=== PATIENT | male | born 1995 | race Caucasian/White ===

== ENCOUNTER 2018-01-11 07:41 | Emergency (ER) | payer OTHER ==
[~2018-01-11] VITALS: Ht 172.7 cm; Wt 81.8 kg
[2018-01-11 08:49] VITALS: BP 138/81
[2018-01-11] MEDS ORDERED: IBUPROFEN 600 MG TABLET PO ONE (09:00)
== END 2018-01-11 09:07 | disposition home or self-care (01) ==
LOC: EMS 07:44
DX: S46.912A Strain of unspecified muscle, fascia and tendon at shoulder and upper arm level, left arm, initial encounter (principal); S29.012A Strain of muscle and tendon of back wall of thorax, initial encounter; S00.212A Abrasion of left eyelid and periocular area, initial encounter; V49.40XA Driver injured in collision with unspecified motor vehicles in traffic accident, initial encounter; Y93.89 Activity, other specified; Y92.89 Other specified places as the place of occurrence of the external cause; Y99.8 Other external cause status